=== PATIENT | female | born 1980 | race Caucasian/White ===

== ENCOUNTER 2017-03-28 12:55 | Emergency (ER) | payer SELFPAY ==
[~2017-03-28 12:55] MED LIST: Z.0.NO CURRENT MEDS
[2017-03-28 12:57] VITALS: BP 122/65; PULSE 71; RESP 16; TEMP 98.9; O2SAT 99
[2017-03-28] MEDS ORDERED: CHLOTAB5 PO (13:32)
--- NOTE | 2017-03-28 13:56 | PD ---
HPI Chief Complaint: Cold / Flu Symptoms Time Seen by Provider: 13:39 Travel History International Travel<30 days: No Contact w/Intl Traveler<30days: No Traveled to known affect area: No History of Present Illness HPI 36-year-old female presents to the ED for evaluation of 4 day history of sinus congestion, clear rhinorrhea, nonproductive cough. She endorses chills, has not measured a fever at home. She denies ear pain, sore throat, nausea, vomiting. She did not receive this years flu vaccine. She is a current smoker. She states that her boyfriend was ill first and "gave it to me." No treatment at home. PFSH Past Medical History Arthritis: Yes (JRA) Past Surgical History Oral Surgery: Yes (DENTAL WORK) Social History Alcohol Use: No Tobacco Use: No (QUIT 2 WEEKS AGO SMOKED CIGS APPROX 1/4 PPD) Substance Use: No Allergies-Medications (Allergen,Severity, Reaction): Coded Allergies: aspirin (Unverified Allergy, Severe, ITCHING, 10/05/16) ONLY IN HIGH DOSES codeine (Unverified Allergy, Severe, RASH, 10/05/16) morphine (Unverified Allergy, Severe, RASH, 10/05/16) penicillin G (Unverified Allergy, Severe, ANAPHYLAXIS, 10/05/16) PT STATES ALL 'CILLINS' sulfamethoxazole (Unverified Allergy, Severe, HIVES, 10/05/16) trimethoprim (Unverified Allergy, Severe, HIVES, 10/05/16) Sulfa (Sulfonamide Antibiotics) (Unverified Allergy, Unknown, UNKNOWN, ) Reported Meds & Prescriptions Reported Meds & Active Scripts Active Proair Hfa 8.5 GM Inh (Albuterol Sulfate) 90 Mcg/Act Aer 2 Puff INH Q4-6H PRN 108 mcg/actuation Doxycycline Hyclate 100 Mg Cap 100 Mg PO BID 5 Days Flonase Nasal [place] (Fluticasone Nasal [place]) 50 Mcg/Act [place] 100 Mcg EACH NARE BID 14 Days Frannie-D 24 Hour Allergy (Fexofenadine-Pseudoephedrine ER 24 HR) 180-240 Cristela 1 Tab PO DAILY Reported Enedelia-Centerpoint Plus Cold (Raycrpehvcidqjlu-Gujiucvyzqnnh-Mrneoes) 2-7.8-325 Mg Tab 2 Tab PO Q4H PRN Fully disolve tablets in 4 oz of water. Review of Systems Except as stated in HPI: all other systems reviewed are Neg Physical Exam Narrative GENERAL: Well-nourished, well-developed nontoxic appearing white female in no acute distress.. SKIN: Focused skin assessment warm/dry. HEAD: Normocephalic. EYES: No scleral icterus. No injection or drainage. ENT: Pearly chacon tympanic membranes bilaterally. Nasal mucosa moist, boggy. Oropharynx with mild posterior erythema. Uvula midline. Airway patent. NECK: Supple, trachea midline. No JVD or lymphadenopathy. CARDIOVASCULAR: Regular rate and rhythm without murmurs, gallops, or rubs. RESPIRATORY: Breath sounds clear and equal bilaterally. No accessory muscle use. GASTROINTESTINAL: Abdomen soft, non-tender, nondistended. MUSCULOSKELETAL: No cyanosis, or edema. BACK: Nontender without obvious deformity. No CVA tenderness. Data Data Last Documented VS Vital Signs Date Time Temp Pulse Resp B/P (MAP) Pulse Ox O2 Delivery O2 Flow Rate FiO2 03/28/17 14:53 03/28/17 12:57 98.9 71 16 99 Orders Orders Influenzae A/B Antigen (03/28/17 13:12) Group A Rapid Strep Screen (03/28/17 13:12) Strep Culture (Group A) (03/28/17 13:15) Chest, Pa & Lat (03/28/17 ) Ed Discharge Order (03/28/17 14:25) MDM Medical Decision Making Medical Screen Exam Complete: Yes Emergency Medical Condition: Yes Differential Diagnosis Viral syndrome versus bronchitis versus pneumonia versus other Narrative Course 36-year-old female presents to the ED for evaluation of 4 day history of sinus congestion, clear rhinorrhea, nonproductive cough. She endorses chills, has not measured a fever at home. She is a current smoker. She states that her boyfriend was ill first and "gave it to me." Patient afebrile, nontoxic- appearing of presentation. ENT exam is unremarkable. Chest CT AB. Strep and flu swabs negative. CXR negative for acute process. This is upper respiratory infection and postnasal drip. Patient is prescribed daily antihistamine/ decongestant, intranasal steroids, doxycycline and rescue inhaler. She is instructed to take the antibiotics as prescribed, take other medications to reduce symptoms, stop smoking, follow with the primary care provider. She is stable and discharged home. Diagnosis Primary Impression: Upper respiratory infection Qualified Codes: J06.9 - Acute upper respiratory infection, unspecified Additional Impression: Upper airway cough syndrome Referrals: Primary Care Physician Patient Instructions: General Instructions, Postnasal Drip (DC), Upper Respiratory Infection (ED) Additional Instructions: Rest, hydrate. Stop smoking. Take daily antihistamine and intranasal steroids to reduce sinus drainage. Take antibiotics as they are prescribed until every pill is gone. ProAir inhaler as needed for coughing fits with wheezing. Follow-up with the primary care provider. Return to the ED for worsening symptoms or any urgent or emergent medical condition. Med/Other Pt SpecificInfo: Prescription(s) given Scripts Albuterol 8.5 GM Inh (Proair Hfa 8.5 GM Inh) 90 Mcg/Act Aer 2 PUFF INH Q4-6H Y for SHORTNESS OF BREATH, #1 INHALER 0 Refills 108 mcg/actuation Prov: Alice Davis MD 03/28/17 Doxycycline Hyclate (Doxycycline Hyclate) 100 Mg Cap 100 MG PO BID for Infection for 5 Days, #10 CAP 0 Refills Prov: Alice Davis MD 03/28/17 Fluticasone Nasal [place] (Flonase Nasal [place]) 50 Mcg/Act [place] 100 MCG EACH NARE BID for Allergies for 14 Days, #1 BOTTLE 0 Refills Prov: Alice Davis MD 03/28/17 Fexofenadine-Pseudoephedrine ER 24 HR (Frannie-D 24 Hour Allergy) 180-240 Cristela 1 TAB PO DAILY for Allergy Management, #30 TAB 0 Refills Prov: Alice Davis MD 03/28/17 Disposition: 01 DISCHARGE HOME Condition: Stable Brandi Calderon Mar 28, 2017 13:56
[2017-03-28] MEDS ORDERED: DOXY100C PO (14:09)
[2017-03-28] MEDS ORDERED: ALBUAER3 INH (14:09)
[2017-03-28] MEDS ORDERED: FEXO1TAB97 PO (14:09)
[2017-03-28] MEDS ORDERED: FLUT1SPR5 EACH NARE (14:09)
--- NOTE | 2017-03-28 15:30 | RADRPT ---
EXAM DATE/TIME: 03/28/2017 14:12 [facility] COMPARISON: No previous studies available for comparison. INDICATIONS : Coughing for 4 days, tightness in middle of chest and back, smoker MEDICAL HISTORY : None. SURGICAL HISTORY : None. ENCOUNTER: Initial ACUITY: 4 - 6 days PAIN SCORE: 2/10 LOCATION: Bilateral chest FINDINGS: PA and lateral views of the chest demonstrate the lungs to be symmetrically aerated without evidence of mass, infiltrate or effusion. The cardiomediastinal contours are unremarkable. Osseous structure s are intact. CONCLUSION: No acute disease. Addy Momin MD FACR on March 28, 2017 at 15:28 Board Certified Radiologist. This report was verified electronically.
== END 2017-03-28 14:54 | disposition home or self-care (01) ==
LOC: NEPK 12:55
DX: J06.9 Acute upper respiratory infection, unspecified (principal); Z87.891 Personal history of nicotine dependence
CPT/HCPCS: 71046; 87081; 87804; 87880; 99284